=== PATIENT | female | born 1995 | race Caucasian/White ===

== ENCOUNTER 2024-12-17 20:23 | Emergency (ER) | payer BC, OTHER ==
[2024-12-17 20:29] VITALS: BP 116/62; PULSE 76; RESP 18; TEMP 98.2; BMI 28.3
[2024-12-17] MEDS ORDERED: IBUPROFEN 400 MG TABLET (FP) PO ONE (22:02)
[2024-12-17] MEDS ORDERED: ACETAMINOPHEN 500 MG TABLET (FP) ONE (22:04)
[2024-12-17] MEDS: ACETAMINOPHEN 500 MG TABLET (FP) PO ONE (22:07)
[2024-12-17] MEDS: IBUPROFEN 400 MG TABLET (FP) PO ONE (22:07)
[2024-12-18] MEDS ORDERED: oxyCODONE HCL 5 MG TABLET ONE (00:40)
[2024-12-18] MEDS: oxyCODONE HCL 5 MG TABLET PO ONE (00:43)
== END 2024-12-18 00:52 | disposition home or self-care (01) ==
LOC: JER 20:23
PROC: 2W38X1Z Immobilization of Right Upper Extremity using Splint (ICD-10-PCS; principal; 2024-12-17)
DX: S42.401A Unspecified fracture of lower end of right humerus, initial encounter for closed fracture (principal); W01.0XXA Fall on same level from slipping, tripping and stumbling without subsequent striking against object, initial encounter
CPT/HCPCS: 73060-TC-RT-FY; 73070-TC-RT-FY; 99283-25

== ENCOUNTER 2024-12-30 12:35 | Day surgery (SDC) | payer BC, OTHER ==
[2024-12-26 14:43] VITALS: BMI 28.0
[2024-12-30] MEDS ORDERED: ROPIVACAINE HCL/PF 100 MG/20 ML VIAL ONE ×2 (13:58→14:06)
[2024-12-30] MEDS ORDERED: DEXAMETHASONE SOD PHOSPHATE 10 MG/1 ML VIAL ONE (13:59)
[2024-12-30] MEDS ORDERED: MIDAZOLAM HCL 2 MG/2 ML SINGLE DOSE VIAL ONE (14:14)
[2024-12-30] MEDS ORDERED: PROPOFOL 40 ML ONE (14:14)
[2024-12-30] MEDS ORDERED: ACETAMINOPHEN INJECTION 100 ML ONE (14:33)
[2024-12-30] MEDS ORDERED: LIDOCAINE 1%/EPI 1:100000 (20 ML MULTI DOSE VIAL) ONE (14:33)
[2024-12-30] MEDS ORDERED: BUPIVACAINE HCL/PF 0.25% (2.5MG/ML) 10 ML VIAL ONE (14:33)
[2024-12-30] MEDS ORDERED: ceFAZolin SODIUM 1 GM VIAL ONE (14:54)
[2024-12-30] MEDS ORDERED: KETOROLAC TROMETHAMINE 30 MG/1 ML VIAL ONE (14:55)
[2024-12-30] MEDS ORDERED: ONDANSETRON 4 MG/2 ML VIAL ONE ×2 (14:55→18:32)
[2024-12-30] MEDS: LIDOCAINE 1%/EPI 1:100000 (20 ML MULTI DOSE VIAL) IJ ONE (15:08)
[2024-12-30] MEDS: BUPIVACAINE HCL/PF 0.25% (2.5MG/ML) 10 ML VIAL IJ ONE (15:08)
[2024-12-30] MEDS ORDERED: FENTANYL CITRATE/PF 50 MCG/ML VIAL ONE ×2 (16:26→16:35)
[2024-12-30] MEDS ORDERED: LACTATED RINGERS SOLUTION 1,000 ML IV SCH (16:30)
[2024-12-30] MEDS: ONDANSETRON 4 MG/2 ML VIAL IVPUSH PRN (16:44)
[2024-12-30] MEDS ORDERED: PROMETHAZINE HCL 25 MG/1 ML VIAL IVPB ONE (16:48)
[2024-12-30] MEDS ORDERED: HYDROmorphone HCL/PF 1 MG/ML VIAL ONE (16:53)
[2024-12-30] MEDS: HYDROmorphone HCl 2 MG/ML VIAL IVPUSH PRN (16:55)
[2024-12-30 17:36] VITALS: TEMP 97.3
[2024-12-30] MEDS ORDERED: oxyCODONE HCL 5 MG TABLET ONE (17:38)
[2024-12-30] MEDS: oxyCODONE HCL 5 MG TABLET PO PRN (17:40)
[2024-12-30 18:15] VITALS: BP 116/66; PULSE 72; RESP 18
== END 2024-12-30 19:12 | disposition home or self-care (01) ==
LOC: FASU 12:35 → FASU-ENDO 12:35 → FASU 19:12
PROVIDERS: ATTEND Student in an Organized Health Care Education/Training Program
PROC: 01S60ZZ Reposition Radial Nerve, Open Approach (ICD-10-PCS; 2024-12-30)
PROC: 0PSC04Z Reposition Right Humeral Head with Internal Fixation Device, Open Approach (ICD-10-PCS; principal; 2024-12-30 15:08)
DX: S42.391A Other fracture of shaft of right humerus, initial encounter for closed fracture (principal); X58.XXXA Exposure to other specified factors, initial encounter; Y93.9 Activity, unspecified; Y92.9 Unspecified place or not applicable
CPT/HCPCS: 24546; 64708; C1713; 73060-TC-RT-FY; 81025; 94760; J0131; J1100